=== PATIENT | male | born 1950 | race Caucasian/White ===

== ENCOUNTER 2018-01-27 15:17 | Observation (INO) ==
[2018-01-27] MEDS ORDERED: Isovue-370 500 ML INFUS..BTL IV ONE (15:32)
[2018-01-27] MEDS ORDERED: 0.9 % Sodium Chloride 1,000 ML IVC ONE (15:33)
--- NOTE | 2018-01-27 15:33 | Emergency Department Note ---
Disposition Clinical Impression: Atypical chest pain, Facial droop, Slurred speech, Hypertension Disposition: Admitted As Inpatient Condition: Fair Referrals: NONE,PCP [Non-Partnered Physician] - Time of Disposition: 19:26 General Adult HPI - General Stated complaint: chest pain Time Seen by Provider: 01/27/18 15:18 - Related Data Home Medications Medication Instructions Recorded Confirmed Aspirin [Lo-Dose Aspirin EC] 81 mg PO DAILY 07/29/17 08/03/17 Carvedilol [Coreg] 12.5 mg PO BID 07/29/17 08/03/17 Famotidine [Pepcid] 20 mg PO BID PRN 07/29/17 08/03/17 Gabapentin [Neurontin] 800 mg PO TID 07/29/17 08/03/17 Lisinopril [Zestril] 20 mg PO DAILY 07/29/17 08/03/17 Nitroglycerin [Nitrostat] 0.4 mg SL DAILY PRN 07/29/17 08/03/17 Acetaminophen [Extra Strength 1,000 mg PO DAILY PRN 08/03/17 08/03/17 Non-Aspirin] Amlodipine Besylate 10 mg PO DAILY 01/27/18 01/27/18 Allergies Allergy/AdvReac Type Severity Reaction Status Date / Time No Known Allergies Allergy Verified 01/27/18 17:04 Past Medical History - Past Medical History Medical history: Reports: non-contributory Psychiatric history: Reports: no psych history - Social History Smoking Status: Never smoker Smokeless Tobacco Status: No Alcohol use: Reports: none Drug use: Reports: none Course Vital Signs Temperature 97.6 F 01/27/18 15:22 Pulse Rate 61 01/27/18 15:22 Respiratory Rate 12 01/27/18 15:22 Blood Pressure 187/98 01/27/18 15:22 O2 Sat by Pulse Oximetry 99 01/27/18 15:22 Temperature 97.6 F 01/27/18 15:22 Pulse Rate 48 01/27/18 19:06 Respiratory Rate 12 01/27/18 19:06 Blood Pressure 160/80 01/27/18 19:06 O2 Sat by Pulse Oximetry 97 01/27/18 19:06 Oxygen Delivery Oxygen Delivery Room Air Medical Decision Making - Lab Data Result diagrams: 01/27/18 15:30 01/27/18 15:30 Lab Results 12/10/0701/27/18 01/27/18 Range/Units 15:30 15:30 15:30 WBC 6.0 (4.3-11.1) K/mcL RBC 4.56 (4.19-5.50) M/mcL Hgb 13.4 (12.9-16.9) g/dL Hct 40.6 (37.5-50.1) % MCV 89.0 (83.0-100.0) fL MCH 29.4 (28.0-33.3) pg MCHC 33.0 (31.6-35.5) g/dL RDW 12.9 (11.5-14.5) % Plt Count 156 (140-400) K/mcL MPV 10.9 (9.4-12.4) fL PT 11.8 (9.4-12.1) Seconds INR 1.0 APTT 37.9 H (26.0-36.0) Seconds Sodium 139 (136-145) mEq/L Potassium 3.8 (3.5-5.1) mEq/L Chloride 107 (98-107) mEq/L Carbon Dioxide 26 (23-29) mEq/L BUN 9 (8-23) mg/dL Creatinine 0.84 (0.70-1.30) mg/dL Est GFR ( Amer) > 60 (> 60) Est GFR (Non-Af Amer) > 60 (> 60) BUN/Creatinine Ratio 11 (6-26) Glucose 124 H (70-105) mg/dL Calculated Osmolality 288 (280-300) Calcium 9.1 (8.6-10.3) mg/dL Troponin I < 0.03 (< 0.04) ng/mL Attestation Statement - Attestation Attestation: I, Henry Curran DO, examined this patient [id number] and my medical decision-making was reviewed with Dr. Sammy Leigh, Resident Physician. I agree with the documented findings, disposition and treatment plan as described except to the extent set forth below. Please see my progress notes for details. 67-year-old male presents to the emergency room in the care of the family for evaluation of what they described as chest pain and difficulty with speech. According to the family the patient has had symptoms like this with his mental status over the last several years and they had a resent identical to this. He has never had chest pain with those symptoms. Patient described chest pain starting approximately one hour prior to coming in and the neurologic symptoms starting approximately one half hour prior to coming in. Denies any falls trauma or injury. He is complaining of a headache. Denies any nausea vomiting or diarrhea. No recent illnesses no fevers no chills. Denies any new medications. On presentation here the patient is alert and oriented. He has a visible right-sided facial droop with slurred speech. He is still describing chest pressure and pain. He does have a history of hypertension. His oropharynx is patent trachea is midline. He has no deviation of the tongue and soft palate. His lungs are clear his heart is regular. Abdomen is soft nontender nondistended with no guarding no rigidity no peritoneal symptoms. Stroke alert was called proximately 10 minutes after arrival here to the emergency room secondary to the slurred speech and facial asymmetry. Family says this has happened in the past and resolved on its own and he was diagnosed with a mini stroke. Concern is noted for some aspect of vascular ischemia causing the symptoms here today. Cardiac evaluation will be completed as well. Disposition to be determined. NIH stroke scale appears to be a 2 at this time for facial asymmetry and slurred speech. He does have subjective weakness in the right upper right lower extremity but no deviation against gravity. Patient is otherwise in no apparent distress at this point will have symptomatic control completed for the chest pain. Disposition to be determined that the patient will either require admission or transfer during this treatment course. See detailed documentation of the physical exam, medical intervention, medical decision-making and disposition in the resident physician's note. No critical care provider the patient's treatment course at this time. [address] Crowley reviewed the case by the stroke robot. The examination appears to be stable at this point. Patient has had poorly c ontrolled hypertension. Lengthy amount of time was spent bedside reviewing the neurologic symptoms. Is the patient and family are unable to confirm a definitive last known well. After reviewing the patient's chart at [facility] as well as the findings here today and multiple physical examinations at the bedside it determined that the patient is not a TPA candidate at this point. Recommendation for CT angiography of the head and neck were given. These tests were ordered on initial presentation. It they are negative the patient will be admitted to our facility for neurologic evaluation and cardiac treatment course. Patient is 100% chest pain-free at this point after 2 nitrogl ycerin. He was provided an aspirin. Patient does not have any acute signs of EKG change at this point. Troponin and labs are still pending. Disposition will be admission or transfer. Stroke alert was canceled at [address] angiography of the head and neck are unremarkable for vascularly significant stroke. Patient will be admitted at this time. The hospitalist Dr. Nuñez reviewed the case. No other concerns or issues noted at this time. Patient is chest pain-free. Patient is otherwise clinically stable. Will be admitted for continuation of care. NIH Stroke Scale - Facial Palsy Facial Palsy: Complete absence of movement in upper and lower face
[2018-01-27 15:39] LABS: Hematocrit 40.6 % (37.5-50.1); Hemoglobin 13.4 g/dL (12.9-16.9); Mean Corpuscular Hemoglobin 29.4 pg (28.0-33.3); Mean Platelet Volume 10.9 fL (9.4-12.4); Platelet Count 156 K/mcL (140-400); Red Blood Count 4.56 M/mcL (4.19-5.50); Red Cell Distribution Width 12.9 % (11.5-14.5)
[2018-01-27 15:46] LABS: Prothrombin Time 11.8 Seconds (9.4-12.1)
[2018-01-27] MEDS ORDERED: Nitroglycerin 25 MG/250 ML INFUS..BTL IVC ONE (15:47)
[2018-01-27 15:49] LABS: Activated Partial Thrombo Time 37.9 Seconds (26.0-36.0)
[2018-01-27] MEDS: Nitroglycerin 0.4 MG TAB.SUBL SL PRN ×2 (15:50→15:57)
--- NOTE | 2018-01-27 15:51 | Emergency Department Note ---
Disposition Clinical Impression: Atypical chest pain, Facial droop, Slurred speech Hypertension Qualifiers: Hypertension type: unspecified Qualified Code(s): I10 - Essential (primary) hypertension Disposition: Admitted As Inpatient Condition: Fair Time of Disposition: 20:36 Neuro HPI - General Stated Complaint: chest pain Time Seen by Provider: 01/27/18 15:18 Source: patient, family Limitations: no limitations Nursing Notes Reviewed: Yes Vital Signs Reviewed: Yes - History of Present Illness HPI Narrative: 67yo male presents from home for evaluation of chest pain. Chest pain onset one hour prior to arrival. Associate with dyspnea. Additionally, he has right- sided facial droop with slurring and slowness of speech onset 30 minutes prior to arrival. Family bedside no the patient is more confused than normal. Patient awoke this AM normal. At an unknown time, he had a severe headache which he has difficulty describing and has since abated. Now with CP and slurring of speech. He notes his BL LE are weak. Patient has a history of "spells," which family describes as passing out, eyes rolling up, huffing, unresponsive to voice. This has been ongoing for the past 3 years. Family notes he has previously been seen and the doctor could not fi gure out a cause; they are not sure when or by whom he was seen and evaluated. PMH: Hypertension. Medications: Antihypertensive, daily aspirin. No history of TIA, CVA, diabetes mellitus, [place], CKD. Habits: Does not drink alcohol, smoke tobacco, no illicit substances. ROS: Positive: As above Negative: Fever, chills, nausea, vomiting, nausea, vomiting, upper extremity heaviness or numbness or tingling, unusual back pain, changes in vision. - Related Data Home Medications: Home Medications Medication Instructions Recorded Confirmed Aspirin [Lo-Dose Aspirin EC] 81 mg PO DAILY 07/29/17 01/27/18 Carvedilol [Coreg] 12.5 mg PO BID 07/29/17 01/27/18 Famotidine [Pepcid] 20 mg PO BID PRN 07/29/17 01/27/18 Gabapentin [Neurontin] 800 mg PO QID 07/29/17 01/27/18 Lisinopril [Zestril] 20 mg PO DAILY 07/29/17 01/27/18 Nitroglycerin [Nitrostat] 0.4 mg SL DAILY PRN 07/29/17 01/27/18 Acetaminophen [Extra Strength 1,000 mg PO DAILY PRN 08/03/17 01/27/18 Non-Aspirin] Amlodipine Besylate 10 mg PO DAILY 01/27/18 01/27/18 Allergies/Adverse Reactions: Allergies Allergy/AdvReac Type Severity Reaction Status Date / Time No Known Allergies Allergy Verified 01/27/18 17:04 Past Medical History - Past Medical History Medical history: Reports: non-contributory Psychiatric history: Reports: no psych history - Social History Smoking Status: Never smoker Smokeless Tobacco Status: No Alcohol use: Reports: none Drug use: Reports: none Physical Exam Vital Signs Reviewed General: Patient is alert, oriented to self, date of , location, and in no acute distress. Head: atraumatic, normocephalic Eye: normal appearance, PERRL, EOMI, no scleral icterus, no conjunctival injection ENT: mucous membranes moist, normal external ear exam Neck: normal inspection, trachea midline, full ROM Chest: normal inspection, symmetric chest rise Respiratory: Poor respiratory effort. Bilateral breath sounds are clear without wheezing, crackles, or rhonchi. Cardiovascular: Regular rate and rhythm. No clicks, rubs, gallops, or murmors. Normal heart sounds. Abdomen: Bowel sounds present normoactive. Abdomen is soft, nondistended, and nontender. No guarding or rebound. No organomegaly noted. Musculoskeletal: Spontaneously moving all extremities. No limb drift in upper and lower extremities. Skin: warm, dry, intact. Neuro: Alert and oriented x4. Sensation light touch intact. Psych: Patient's affect is appropriate for situation. - General Limitations: no limitations General appearance: in no apparent distress, lethargic Course Course Narrative: Patient slurred speech could be chronic venous which is his baseline after these, "spells." Patient Strube face could also be from being edentulous as when he fully flexes his facial muscles, there is no facial droop. Patient and his at bedside are poor historians. [facility] neurologist, Dr. Laura Calzada, evaluated the patient via tele neuro. After exam, evaluation of HPI as well as patient's chart at [facility], it was deemed the patient is not a candidate for TPA.. Stroke alert canceled at 16:25. EKG dated 27 January 2018 at 15:23 interpreted as sinus rhythm with a rate of 61. QRS 92, QTC 449. Normal axis. Q waves present in precordial leads. Nonspecific ST-T changes. Compared to previous EKG dated 08/01/2017 showing no acute ischemic changes or comparison. Serum hematology is unremarkable. Serum chemistries unremarkable. Bedside glucose 124. CT head without contrast shows no acute intracranial abnormality. CTA head unremarkable. Allergy read. CTA neck that show some calcifications of the carotid artery however no focal internal carotid artery narrowing per radiology read. Vertebral arteries were unremarkable. Concern for multiple possible etiologies. Concern for patient chest pain given his obesity, hypertension. Also concern for his history of, "spells." Based on history provided by family, is unclear if they are epileptic versus other etiology. Discussed the above with the admitting hospitalist, Dr. Nuñez. Recommended both neurologic and cardiac workup. Head CT 01/27/18 15:28 IMPRESSION: No acute intracranial abnormality. Findings were discussed with Sammy Leigh at 3:48 pm on 01/27/2018. D/ / Ej Acuña MD / Ej Acuña MD Interpreting Provider: Ej Acuña MD Head CTA 01/27/18 15:32 IMPRESSION: Unremarkable CTA of the head. If clinical concern continues consider MRI D/ / Soren Pearson / Soren Pearson Interpreting Provider: Soren Pearson Neck CTA 01/27/18 15:32 IMPRESSION: Left greater than right carotid artery calcifications. There is no focal significant narrowing of the internal carotid arteries bilaterally. There is no focal significant narrowing of the vertebral arteries. D/ / Soren Pearson / Soren Pearson Interpreting Provider: Soren Pearson Vital Signs Temperature 97.6 F 01/27/18 15:22 Pulse Rate 61 01/27/18 15:22 Respiratory Rate 12 01/27/18 15:22 Blood Pressure 187/98 01/27/18 15:22 O2 Sat by Pulse Oximetry 99 01/27/18 15:22 Temperature 97.6 F 01/27/18 15:22 Pulse Rate 48 01/27/18 19:06 Respiratory Rate 12 01/27/18 19:06 Blood Pressure 160/80 01/27/18 19:06 O2 Sat by Pulse Oximetry 97 01/27/18 19:06 Oxygen Delivery Oxygen Delivery Room Air Neuro Symptoms/Deficit - Lab Data Result diagrams: 01/27/18 15:30 01/27/18 15:30 Lab Results 01/27/18 01/27/18 01/27/18 Range/Units 15:29 15:30 15:30 WBC 6.0 (4.3-11.1) K/mcL RBC 4.56 (4.19-5.50) M/mcL Hgb 13.4 (12.9-16.9) g/dL Hct 40.6 (37.5-50.1) % MCV 89.0 (83.0-100.0) fL MCH 29.4 (28.0-33.3) pg MCHC 33.0 (31.6-35.5) g/dL RDW 12.9 (11.5-14.5) % Plt Count 156 (140-400) K/mcL MPV 10.9 (9.4-12.4) fL PT 11.8 (9.4-12.1) Seconds INR 1.0 APTT 37.9 H (26.0-36.0) Seconds Sodium (136-145) mEq/L Potassium (3.5-5.1) mEq/L Chloride (98-107) mEq/L Carbon Dioxide (23-29) mEq/L BUN (8-23) mg/dL Creatinine (0.70-1.30) mg/dL Est GFR ( Amer) (> 60) Est GFR (Non-Af Amer) (> 60) BUN/Creatinine Ratio (6-26) Glucose (70-105) mg/dL POC Glucose 114 H (70-99) mg/dL Calculated Osmolality (280-300) Calcium (8.6-10.3) mg/dL Troponin I (< 0.04) ng/mL 01/27/18 Range/Units 15:30 WBC (4.3-11.1) K/mcL RBC (4.19-5.50) M/mcL Hgb (12.9-16.9) g/dL Hct (37.5-50.1) % MCV (83.0-100.0) fL MCH (28.0-33.3) pg MCHC (31.6-35.5) g/dL RDW (11.5-14.5) % Plt Count (140-400) K/mcL MPV (9.4-12.4) fL PT (9.4-12.1) Seconds INR APTT (26.0-36.0) Seconds Sodium 139 (136-145) mEq/L Potassium 3.8 (3.5-5.1) mEq/L Chloride 107 (98-107) mEq/L Carbon Dioxide 26 (23-29) mEq/L BUN 9 (8-23) mg/dL Creatinine 0.84 (0.70-1.30) mg/dL Est GFR ( Amer) > 60 (> 60) Est GFR (Non-Af Amer) > 60 (> 60) BUN/Creatinine Ratio 11 (6-26) Glucose 124 H (70-105) mg/dL POC Glucose (70-99) mg/dL Calculated Osmolality 288 (280-300) Calcium 9.1 (8.6-10.3) mg/dL Troponin I < 0.03 (< 0.04) ng/mL NIH Stroke Scale - Level of Consciousness LOC: Alert - LOC Questions LOC Questions: Answers both correctly - LOC Commands LOC Commands: Performs both correctly - Best Gaze Best Gaze: Normal - Visual Visual: No visual loss - Facial Palsy Facial Palsy: Minor asymmetry on smiling, flattened nasolabial fold - Motor Arms Motor Arm-Left: No drift for 10 seconds Motor Arm-Right: No drift for 10 seconds - Motor Legs Motor Leg-Left: No drift for 5 seconds Motor Leg-Right: No drift for 5 seconds - Limb Ataxia Limb Ataxia: Absent of affected limb too weak to perform exam - Sensory Sensory: Normal - Best Language Best Language: No aphasia - Dysarthria Dysarthria: Mild, slurs some words - Extinction and Inattention Extinction and Inattention: Normal - NIHSS Total Score NIHSS Total Score: 2 TPA Checklist - LKW: 3-4.5 hrs Add. Warnings/Precautions Patient/family understanding: The patient/family members have been counseled and understood the risk, benefit, and alternatives of treatment. Attestation Statement - Attestation Attestation: I, Henry Curran DO, examined this patient [id number] and my medical decision-making was reviewed with Dr. Sammy Leigh, Resident Physician. I agree with the documented findings, disposition and treatment plan as described except to the extent set forth below. Please see my progress notes for details.
[2018-01-27 15:57] LABS: BUN/Creatinine Ratio 11 (6-26); Blood Urea Nitrogen 9 mg/dL (8-23); Calcium 9.1 mg/dL (8.6-10.3); Carbon Dioxide 26 mEq/L (23-29); Chloride 107 mEq/L (98-107); Glucose 124 mg/dL (70-105); Osmolality,Calculated 288 (280-300); Potassium 3.8 mEq/L (3.5-5.1); Sodium 139 mEq/L (136-145); eGFR For Non-African Americans > 60 (> 60)
[2018-01-27 15:59] LABS: Troponin I < 0.03 ng/mL (< 0.04)
[2018-01-27] MEDS ORDERED: Aspirin 325 MG TABLET PO ONE (17:18)
[2018-01-27] MEDS ORDERED: amLODIPine 5 MG TABLET PO STA (17:52)
--- NOTE | 2018-01-27 20:00 | Internal Med History&Physical ---
<Emma Watson - Last Filed: 01/27/18 22:41> Date of Encounter: 01/27/18 Time of Encounter: 20:00 Internal Medicine - H&P: HPI Chief complaint: Chest Pain Admitted From: Home Plans for Post Hospital Care: Home History of present illness: Mr. Varner is a 67 year old male with past medical history significant for hypertension who presents to the ED with chest pain. Patient states that earlier this afternoon he began feeling generalized malaise, discomfort, lightheadedness/dizziness. He notes that he has had this feeling in the past, and usually when he sits down for a minute or two, the feeling usually passes. However, patient continued to feel unease, and shortly thereafter developed sudden onset headache, blurred vision, and then started feeling chest pain in the center of his chest. Chest pain was pressure-like, heavy sensation. Associated with dyspnea, fatigue, lower extremity weakness, posterior neck pain. Heaviness lasted for a few minutes and then turned to sharp pain in the center of his chest, and then to a dull achy sensation. At this point, patient denied fevers/chills, palpitations, nausea, vomiting, arm pain or neck pain, syncopal episode. Patient noted that he has had similar symptoms of chest pain, weakness in the past. Denies history of stroke, TIA, NV, or any other medical history, aside from hypertension. Stated that he had eaten this morning, and drank "m ultiple gatorades" and so was unlikely he was dehydrated or had low blood sugar. However, he suggested that he go to the ER for evaluation. On evaluation in the ED, patient's noted that speech was slurred from normal, and he was speaking slower than normal. She also noted right-sided facial droop, and mild confusion from baseline. Patient and family do not know when his last known well was. However, patient awoke this morning without any symptoms. At this point, patient's headache had resolved, but dull achy chest pain persisted. Stroke alert was called, and Dr. Calzada, neurologist from [facility] was consulted. Patient was evaluated via telemedicine, and it was deemed that patient was not a candidate for TPA. Stroke alert was canceled. In the ED, initial vitals were as follows: T = 97.6, HR = 61, RR = 12, BP = 187/98, O2 = 99% on room air CBC = within normal limits BNP = within normal limits Troponin = negative 1 EKG: Normal sinus rhythm, HR = 61, QRS = 92, QTC = 449, normal axis, normal intervals, no acute ST changes, largely unchanged from previous EKG CT head without contrast: No acute abnormality CTA head: Unremarkable CTA neck: Left greater than right carotid artery calcifications; no focal significant narrowing of the internal carotids bilaterally; no focal significant narrowing of vertebral arteries bilaterally Patient was given nitroglycerin 2 in the ED, after which chest pain resolved completely. Also given a dose of aspirin, amlodipine, carvedilol, normal saline. Upon visiting with patient, patient currently resting comfortably in bed in no acute distress. AAO 3. Notes chest pain has resolved, no longer feels dizzy/lightheaded, and does not feel lower extremity weakness. My exam, neuro exam was essentially normal with cranial nerves II through XII intact, and 5 out of 5 strength in upper and lower extremities bilaterally. No evidence of pronator drift, no cerebellar deficits. Heart and lungs were also normal. Plan to admit patient for further Cardiologic and neurologic workup. Past Med Surg Social Fam HX - Past Medical History Source: patient, old records reviewed Medical history: hypertension Psychiatric history: no psych history - Past Surgical History Additional surgical history: abcess on kidney drained - Social History Smoking Status: Never smoker Smokeless Tobacco Status: No Alcohol use: none Drug use: none - Family History Father History Unknown: Yes Adopted: No Age: 97 Family Member Ethnicity: Non- Living Status: Hx Family Cancer: Yes (Bone) Hx Family Neurologic Disorders: Yes (Alzheimers) Mother History Unknown: Yes Adopted: No Age: 67 Living Status: Hx Family Respiratory Disorders: Yes (Lung ca, ashtma) Internal Medicine - H&P: Meds Aspirin [Lo-Dose Aspirin EC] 81 mg PO DAILY 07/29/17 [History] Carvedilol [Coreg] 12.5 mg PO BID 07/29/17 [History] Famotidine [Pepcid] 20 mg PO BID PRN 07/29/17 [History] Gabapentin [Neurontin] 800 mg PO QID 07/29/17 [History] Lisinopril [Zestril] 20 mg PO DAILY 07/29/17 [History] Nitroglycerin [Nitrostat] 0.4 mg SL DAILY PRN 07/29/17 [History] Acetaminophen [Extra Strength Non-Aspirin] 1,000 mg PO DAILY PRN 08/03/17 [History] Amlodipine Besylate 10 mg PO DAILY 01/27/18 [History] Allergy/AdvReac Type Severity Reaction Status Date / Time No Known Allergies Allergy Verified 01/27/18 17:04 All Systems PM: A 10-system review of systems was performed and is negative for pertinent findings except as documented above in the HPI. - Constitutional Constitutional: malaise, no chills, no fatigue, no fever(s), no lethargy, no night sweats, no weakness - EENT Eyes: blurry vision, no change in vision Nose, mouth and throat: neck pain, no facial pain, no nasal congestion, no post- nasal drip, no sinus pain, no sinus pressure, no sore throat - Cardiovascular Cardiovascular ROS IM: lightheadedness, no chest pain, no dyspnea, no dyspnea on exertion, no edema, no irregular heart rhythm, no palpitations, no syncope - Respiratory Respiratory: no cough, no dyspnea, no dyspnea on exertion - Gastrointestinal Gastrointestinal: no abdominal pain, no constipation, no diarrhea, no hematemesis, no nausea, no vomiting - Genitourinary Genitourinary ROS male: urinary frequency, no dysuria - Musculoskeletal Musculoskeletal ROS IM: back pain, neck pain, no muscle weakness, no tingling - Integumentary Integumentary IM: no rash - Neurological Neurological ROS: abnormal speech, no confusion, no dizziness, no focal weakness, no headache(s), no numbness, no paresthesias, no tingling, no weakness - Constitutional Vitals: Temp Pulse Resp BP Pulse Ox 97.6 F 48 12 160/80 97 01/27/18 15:22 01/27/18 19:06 01/27/18 19:06 01/27/18 19:06 01/27/18 19:06 General appearance: Present: cooperative, A&O X 3, pleasant, no acute distress, answers questions appropriately Exam: GEN: AOx3; NAD; Resting comfortably in bed HEENT: Atraumatic, Normocephalic; EOMI; PERRLA; mucous membranes moist; no scleral icterus CARDIO: RRR, no murmurs, rubs, gallops RESP: CTAB, no wheezes, rales, rhonchi ABD: Soft, distended abdomen, non-tender, bowel sounds present; no rebound or guarding EXT: No lower extremity edema; non-tender to palpation NEURO: CN 2-12 grossly intact; 5/5 strength upper and lower extremities bilaterally; cerebellar function intact; no pronator drift; light touch sensation intact Internal Med - H&P Results - Labs CBC & Chem 7: 01/27/18 15:30 01/27/18 15:30 Labs: Short CBC 01/27/18 Range/Units 15:30 WBC 6.0 (4.3-11.1) K/mcL Hgb 13.4 (12.9-16.9) g/dL Hct 40.6 (37.5-50.1) % Plt Count 156 (140-400) K/mcL BMP 01/27/18 15:30 Sodium 139 Potassium 3.8 Chloride 107 Carbon Dioxide 26 BUN 9 Creatinine 0.84 Glucose 124 H Calcium 9.1 Cardiac Enzymes 01/27/18 Range/Units 15:30 Troponin I < 0.03 (< 0.04) ng/mL - EKG Data -: EKG Interpreted by Myself EKG shows normal: sinus rhythm, axis, intervals, QRS complexes, ST-T waves Rate: normal - EKG Data Prior EKG available for review: yes When compared to previous EKG: there is no significant change Interpretation IM: normal EKG - Impressions ITS Impressions Head CT 01/27/18 15:28 IMPRESSION: No acute intracranial abnormality. Findings were discussed with Sammy Leigh at 3:48 pm on 01/27/2018. D/ / Ej Acuña MD / Ej Acuña MD Interpreting Provider: Ej Acuña MD Head CTA 01/27/18 15:32 IMPRESSION: Unremarkable CTA of the head. If clinical concern continues consider MRI D/ / Soren Pearson / Soren Pearson Interpreting Provider: Soren Pearosn Neck CTA 01/27/18 15:32 IMPRESSION: Left greater than right carotid artery calcifications. There is no focal significant narrowing of the internal carotid arteries bilaterally. There is no focal significant narrowing of the vertebral arteries. D/ / Soren Pearson / Soren Pearson Interpreting Provider: Soren Pearson - Assessment and plan (1) Atypical chest pain Current Visit: Yes Status: Acute Assessment and plan: Mr. Varner is a 67 year old male with past medical history significant for hypertension who presents to the ED with chest pain. Notes heavy, pressure like sensation in the center of his chest; non-radiating; heavy feeling turned sharp and then dull, achy pain persisted Associated with sudden-onset headache, malaise, fatigue, lightheadedness/dizziness, blurry vision, dyspnea, posterior neck pain, lower extremity weakness b/l Denies fevers/chills, palpitations, bilateral arm pain, nausea, vomiting Pain resolved s/p 2 SL nitroglycerin in the ED; Also was given aspirin, amlodipine, carvedilol, NS in ED Initial ED Vitals: T = 97.6, HR = 61, RR = 12, BP = 187/98, O2 = 99% on room air CBC = within normal limits BNP = within normal limits Troponin = negative 2 EKG: Normal sinus rhythm, HR = 61, QRS = 92, QTC = 449, normal axis, normal intervals, no acute ST changes, largely unchanged from previous EKG Pharmacologic Stress Test (03/25/16): Impression: Pharmacologic stress ECG is negative for ischemia at level of heart rate achieved. Gated EF = 75%. Perfusion imaging was negative for ischemia or infarct. PLAN: Admit to further monitor on antisqueak filler vitals Trend troponins Cont aspirin; Hold HTN meds for now Monitor for further chest pain; Nitro PRN for chest pain Echo in the AM (2) Facial droop Current Visit: Yes Status: Acute Assessment and plan: On presentation to ED, pt's noted that pt had slurred speech, was talking more slowly than usual, and had right sided facial droop with mild confusion Associated with sudden onset headache prior to arrival, and chest pain Awoke this AM with no symptoms; unknown when last known well was Stroke Alert called - Dr. Calzada, [facility] neurology consulted - determined TPA not needed; stroke alert cancelled Initial Vitals: T = 97.6, HR = 61, RR = 12, BP = 187/98, O2 = 99% on room air Neurologic Workup: CT head without contrast: No acute abnormality CTA head: Unremarkable CTA neck: Left greater than right carotid artery calcifications; no focal significant narrowing of the internal carotids bilaterally; no focal significant narrowing of vertebral arteries bilaterally Currently resting comfortably - no acute distress; no focal neurologic deficits on exam; denies weakness, slurred speech at this time S/p Aspirin in the ED PLAN: Admit for further observation Monitor on telemetry; monitor vitals Neuro Checks q4h MRI Brain in the AM (3) Hypertension Current Visit: Yes Status: Acute Assessment and plan: BP = 187/98 on presentation S/p Aspirin, amlodipine, carvedilol in the ED PLAN: Hold HTN meds for now Qualifiers: Hypertension type: essential hypertension Qualified Code(s): I10 - Essential (primary) hypertension (4) DVT prophylaxis Current Visit: Yes Status: Acute Assessment and plan: Heparin SQ BID - Time Spent With Patient Total time spent is greater than 50% in coordination of care (as documented) at patient's floor/unit and/or counseling patient: less than 15 minutes <Kendirck Mistry - Last Filed: 01/28/18 01:51> Date of Encounter: 01/28/18 Time of Encounter: 00:10 - Constitutional Constitutional: no fatigue, no fever(s) - EENT Nose, mouth and throat: no nasal congestion, no sore throat - Cardiovascular Cardiovascular ROS IM: chest pain - Respiratory Respiratory: no cough, no chest congestion, no excessive phlegm production, no change in phlegm color - Gastrointestinal Gastrointestinal: no diarrhea, no vomiting - Genitourinary Genitourinary ROS male: no dysuria - Neurological Neurological ROS: no abnormal speech, no confusion, no dizziness, no focal weakness, no headache(s) - Psychiatric Psychiatric: no anxiety, no depression - Constitutional Vitals: Temp Pulse Resp BP Pulse Ox 97.7 F 57 18 117/65 94 01/28/18 00:31 01/28/18 00:31 01/28/18 00:31 01/28/18 00:31 01/28/18 00:31 General appearance: Present: A&O X 3, no acute distress - Head Head exam: Present: atraumatic, normal inspection - Eye Eye exam: Present: EOMI, PERRL. Absent: scleral icterus Pupils: Present: normal accommodation - ENT ENT exam: Present: mucous membranes dry, normal exam, normal oropharynx - Neck Neck exam general surgery: Present: full ROM, supple. Absent: tenderness, nuchal rigidity, thyromegaly - Respiratory Respiratory exam: Present: CTAB. Absent: chest wall tenderness, rales, rhonchi, wheezes - Cardiovascular Cardiovascular exam: Present: RRR, +S1, +S2. Absent: diastolic murmur, systolic murmur - GI/Abdominal GI/Abdominal exam: Present: normal bowel sounds, soft. Absent: hepatomegaly, mass, splenomegaly, tenderness - Extremities Exam Extremities exam: Present: joint swelling, warm, radial pulses palpable and symmetrical. Absent: calf tenderness, pedal edema, tenderness - Back Exam Back exam: Absent: CVA tenderness (L), CVA tenderness (R) - Neurological Exam Neurological exam: Present: alert, CN II-XII intact, oriented X3, no focal deficits. Absent: speech deficit Additional comments: I detect a minimal/equivocal facial droop -- not convinced at this time - Psychiatric Psychiatric exam: Present: normal affect, normal mood - Skin Skin exam: Present: dry, intact, warm Internal Med - H&P Results - Labs CBC & Chem 7: 01/27/18 15:30 01/27/18 15:30 Labs: Short CBC 01/27/18 Range/Units 15:30 WBC 6.0 (4.3-11.1) K/mcL Hgb 13.4 (12.9-16.9) g/dL Hct 40.6 (37.5-50.1) % Plt Count 156 (140-400) K/mcL BMP 01/27/18 15:30 Sodium 139 Potassium 3.8 Chloride 107 Carbon Dioxide 26 BUN 9 Creatinine 0.84 Glucose 124 H Calcium 9.1 Cardiac Enzymes 01/27/18 01/27/18 Range/Units 15:30 21:10 Troponin I < 0.03 < 0.03 (< 0.04) ng/mL - EKG Data -: EKG Interpreted by Myself - EKG Data EKG comments: 01/28/18 01:47 NSR, no acute ST-T changes - Impressions ITS Impressions Head CT 01/27/18 15:28 IMPRESSION: No acute intracranial abnormality. Findings were discussed with Sammy Burnett Leigh at 3:48 pm on 01/27/2018. D/ / Ej Acuña MD / Ej Acuña MD Interpreting Provider: Ej Acuña MD Head CTA 01/27/18 15:32 IMPRESSION: Unremarkable CTA of the head. If clinical concern continues consider MRI D/ / Soren Pearson / Soren Pearson Interpreting Provider: Soren Pearson Neck CTA 01/27/18 15:32 IMPRESSION: Left greater than right carotid artery calcifications. There is no focal significant narrowing of the internal carotid arteries bilaterally. There is no focal significant narrowing of the vertebral arteries. D/ / Soren Pearson / Soren Pearson Interpreting Provider: Soren Pearson - Time Spent With Patient Total time spent is greater than 50% in coordination of care (as documented) at patient's floor/unit and/or counseling patient: - Attending Attestation I discussed the patient [place], past medical history, review of systems, lab data, imaging data, and exam findings with Dr. Watson. I then saw and examined patient independently. Patient is sleeping but easily arousable. He is oriented 3. On my exam, he has no focal deficits and maybe a hint of a right- sided facial droop, but I am not convinced that he truly has a facial droop. Given his presenting symptoms and concerns, we will proceed with MRI of the brain and further workup. EKG and labs are unremarkable for cardiac issues. However, we will proceed with cardiac workup as well. At some point, he will need an ischemic cardiac workup, but I would defer until stroke workup is completed first. Other than my comments noted above and documented exam findings, I agree with Dr Yareli Watson's assessment and plan.
[2018-01-27] MEDS ORDERED: Naloxone 0.4 MG/ML INJ IVP PRN (20:36)
[2018-01-27] MEDS ORDERED: Famotidine 20 MG TABLET PO PRN (20:39)
[2018-01-27] MEDS: Gabapentin 400 MG CAPSULE PO SCH (21:41)
[2018-01-28 03:33] LABS: Basophils # 0.1 K/mcL (0.0-0.2); Basophils % 1.4 %; Eosinophils # 0.2 K/mcL (0.0-0.6); Eosinophils % 2.9 %; Hematocrit 38.6 % (37.5-50.1); Hemoglobin 12.7 g/dL (12.9-16.9); Immature Granulocytes % 0.4 % (0-4); Lymphocytes # 2.2 K/mcL (0.6-4.6); Lymphocytes % 39.6 %; Mean Corpuscular HGB Conc 32.9 g/dL (31.6-35.5); Mean Corpuscular Hemoglobin 29.3 pg (28.0-33.3); Mean Corpuscular Volume 89.1 fL (83.0-100.0); Mean Platelet Volume 11.1 fL (9.4-12.4); Monocytes # 0.4 K/mcL (0.0-1.3); Monocytes % 7.7 %; Neutrophils # 2.7 K/mcL (1.6-8.9); Platelet Count 142 K/mcL (140-400); Red Blood Count 4.33 M/mcL (4.19-5.50)
[2018-01-28 03:50] LABS: BUN/Creatinine Ratio 15 (6-26); Blood Urea Nitrogen 11 mg/dL (8-23); Calcium 8.9 mg/dL (8.6-10.3); Carbon Dioxide 25 mEq/L (23-29); Chloride 109 mEq/L (98-107); Cholesterol 149 mg/dL (< 200); Glucose 99 mg/dL (70-105); HDL Cholesterol 37 mg/dL (40-59); LDL Cholesterol,Calculated 80 mg/dL (0-99); Osmolality,Calculated 287 (280-300); Potassium 3.8 mEq/L (3.5-5.1); Sodium 139 mEq/L (136-145); Triglycerides 159 mg/dL (< 150); eGFR For Non-African Americans > 60 (> 60)
[2018-01-28] MEDS: *HR* Heparin 5,000 UNIT/ML VIAL SQ SCH ×2 (05:23→17:38)
[2018-01-28] MEDS: Gabapentin 400 MG CAPSULE PO SCH ×4 (08:45→21:32)
[2018-01-28] MEDS: Aspirin Enteric Coated 81 MG Tablet PO SCH (08:45)
[2018-01-28] MEDS ORDERED: Perflutren Lipid Microsphere 1.3 ML in 0.9 % Sodium Chloride 8.7 ML IVP ONE ×2 (09:23→09:45)
--- NOTE | 2018-01-28 09:48 | Internal Med Progress Note ---
Hospitalist Progress Note - Encounter Date of Encounter: 01/28/18 Time of Encounter: 09:46 - Subjective Interval History: Patient is a 67 years old male who has history of hypertension presenting emergency room for chest pain and the right facial drooping, slurry speech. Chest pain resolved in no recurrent chest pain overnight. 1. Chest pain, atypical, negative troponin 3, pending echocardiogram. Will do stress test at tomorrow 2. Right facial drooping and his source speech resolved. Likely TIA, pending MRI echocardiogram, check a TSH A1c - Exam Vitals: Temp Pulse Resp BP Pulse Ox 97.8 F 47 20 131/73 96 01/28/18 07:17 01/28/18 07:17 01/28/18 07:17 01/28/18 07:17 01/28/18 07:17 Exam: GEN: AOx3; NAD; Resting comfortably in bed HEENT: Atraumatic, Normocephalic; EOMI; PERRLA; mucous membranes moist; no scleral icterus CARDIO: RRR, no murmurs, rubs, gallops RESP: CTAB, no wheezes, rales, rhonchi ABD: Soft, distended abdomen, non-tender, bowel sounds present; no rebound or guarding EXT: No lower extremity edema; non-tender to palpation NEURO: CN 2-12 grossly intact; 5/5 strength upper and lower extremities bilaterally; cerebellar function intact; no pronator drift; light touch sensation intact DVT Prophylaxis: Heparin subcutaneous - Summary of Assessment and Plan Summary of Assessment and Plan: Mr. Varner is a 67 year old male with past medical history significant for hypertension who presents to the ED with chest pain. Chest pain was pressure- like, heavy sensation. Associated with dyspnea, fatigue, lower extremity weakness, posterior neck pain. Heaviness lasted for a few minutes and On evaluation in the ED, patient's noted that speech was slurred from normal, and he was speaking slower than normal. She also noted right-sided facial droop, and mild confusion from baseline. Patient was evaluated via telemedicine, and it was deemed that patient was not a candidate for TPA. Stroke alert was canceled. EKG: Normal sinus rhythm, HR = 61, QRS = 92, QTC = 449, normal axis, normal intervals, no acute ST changes, largely unchanged from previous EKG CT head without contrast: No acute abnormality CTA head: Unremarkable CTA neck: Left greater than right carotid artery calcifications; no focal significant narrowing of the internal carotids bilaterally; no focal significant narrowing of vertebral arteries bilaterally Patient was given nitroglycerin 2 in the ED, after which chest pain resolved completely. Also given a dose of aspirin, amlodipine, carvedilol, normal saline. Plan to admit patient for further Cardiologic and neurologic workup. (1) Atypical chest pain Current Visit: Yes Status: Acute EKG: Normal sinus rhythm, HR = 61, QRS = 92, QTC = 449, normal axis, normal intervals, no acute ST changes, largely unchanged from previous EKG he had 3 negative trop, chest pain resolved Cont aspirin, if MRI is negative for acute stroke , then will restart home BP meds pending TTE and stress test (2) Right Facial droop, and slurry speech, resolved, possible TIA, contineu ASA, pending MRI, TTE, check A1c, TSH, lipid panel, low HDL Current Visit: Yes Status: Acute Stroke Alert called - Dr. Calzada, [facility] neurology consulted - determined TPA not needed; stroke alert cancelled Initial Vitals: T = 97.6, HR = 61, RR = 12, BP = 187/98, O2 = 99% on room air Neurologic Workup: CT head without contrast: No acute abnormality CTA head: Unremarkable CTA neck: Left greater than right carotid artery calcifications; no focal significant narrowing of the internal carotids bilaterally; no focal significant narrowing of vertebral arteries bilaterall (3) Hypertension Current Visit: Yes Status: Acute Assessment and plan: S/p Aspirin, amlodipine, carvedilol in the ED restart HTN meds if MRI is negative for acute stroke Qualifiers: Hypertension type: essential hypertension Qualified Code(s): I10 - Essential (primary) hypertension (4) DVT prophylaxis Current Visit: Yes Status: Acute Assessment and plan: Heparin SQ BID Pending MRI and TTE, stress test. disposition, Home on 01/29 if all work up complete - Time Spent with Patient Total time spent is greater than 50% in coordination of care (as documented) at patient's floor/unit and/or counseling patient: 25 - 35 minutes Plan of Care Discussed with: patient Internal Medicine: Result - Labs CBC & Chem 7: 01/28/18 03:08 01/28/18 03:08 Labs: Short CBC 01/27/18 01/28/18 Range/Units 15:30 03:08 WBC 6.0 5.6 (4.3-11.1) K/mcL Hgb 13.4 12.7 L (12.9-16.9) g/dL Hct 40.6 38.6 (37.5-50.1) % Plt Count 156 142 (140-400) K/mcL Neutrophils # 2.7 (1.6-8.9) K/mcL BMP 01/27/18 01/28/18 15:30 03:08 Sodium 139 139 Potassium 3.8 3.8 Chloride 107 109 H Carbon Dioxide 26 25 BUN 9 11 Creatinine 0.84 0.72 Glucose 124 H 99 Calcium 9.1 8.9 Cardiac Enzymes 01/27/18 01/27/18 01/28/18 Range/Units 15:30 21:10 03:08 Troponin I < 0.03 < 0.03 < 0.03 (< 0.04) ng/mL - ABG Interpretation ABG results: PT/INR, D-dimer PT 11.8 Seconds (9.4-12.1) 01/27/18 15:30 - Impressions Impressions Head CT 01/27/18 15:28 IMPRESSION: No acute intracranial abnormality. Findings were discussed with Sammy Leigh at 3:48 pm on 01/27/2018. D/ / Ej Acuña MD / Ej Acuña MD Interpreting Provider: Ej Acuña MD Head CTA 01/27/18 15:32 IMPRESSION: Unremarkable CTA of the head. If clinical concern continues consider MRI D/ / Soren Pearson / Soren Pearson Interpreting Provider: Soren Pearson Neck CTA 01/27/18 15:32 IMPRESSION: Left greater than right carotid artery calcifications. There is no focal significant narrowing of the internal carotid arteries bilaterally. There is no focal significant narrowing of the vertebral arteries. D/ / Soren Pearson / Soren Pearson Interpreting Provider: Soren Pearson Consult Discharge Plan - Plan
[2018-01-29 03:19] LABS: Thyroid Stimulating Hormone 1.746 mcIU/mL (0.340-5.600)
[2018-01-29 03:43] LABS: Estimated Average Glucose 134 mg/dl; Hemoglobin A1C 6.3 %
[2018-01-29] MEDS: *HR* Heparin 5,000 UNIT/ML VIAL SQ SCH ×2 (05:26→17:33)
[2018-01-29] MEDS ORDERED: Regadenoson 0.4 MG/5 ML SYRINGE IVP ONE (05:42)
--- NOTE | 2018-01-29 08:11 | Neurology - Consult Note ---
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 Family were unable to confirm a definitive last known well. CT brain revealed acute intracranial abnormality. [facility] teleneurology determined that the patient was not a TPA candidate. CT angiography of the head and neck revealed no significant focal narrowing of the internal carotid or vertebral arteries bilaterally. Echo revealed LVEF 60% with no significant valvular dysfunction. MRI brain pending Continue aspirin. Lipid panel reviewed. Agree with starting statin therapy. No residual deficits on exam. Patient has intermittent difficulty pronouncing words, which is chronic. PT/OT/ ST consulted. Recommend outpatient work up for intermittent "absence seizure-like episodes". (2) Hypertensive emergency Current Visit: No Status: Resolved Patient with history of poorly controlled HTN due to medication non-compliance presented with blood pressure between 187/98 to 201/77 on day of admission and findings concerning for TIA and AMS. Home blood pressure meds were held to allow for permissive hypertension. Blood pressure within normal limits now. May resume home antihypertensive therapy. History of Present Illness Chief complaint: Chest pain HPI: Mr. 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 Family were unable to confirm a definitive last known well but reports patient has chronic difficulty with slurred speech. Family reported this has happened in the past and resolved on its own when he was previously diagnosed with a TIA. He denied recent illnesses, fevers, chills, recent falls, trauma or injury. In the ED, CT brain revealed acute intracranial abnormality. [facility] teleneurology determined that the patient was not a TPA candidate. CT angiography of the head and neck revealed no significant focal narrowing of the internal carotid or vertebral arteries bilaterally. Echo revealed LVEF 60% with no significant valvular dysfunction. Neurology was consulted for further recommendations. Past Med Surg Social Fam HX - Past Medical History Medical history: hypertension Psychiatric history: no psych history - Past Surgical History Additional surgical history: abcess on kidney drained - Social History Smoking Status: Never smoker Smokeless Tobacco Status: No Alcohol use: none Drug use: none - Family History Father History Unknown: Yes Adopted: No Age: 97 Family Member Ethnicity: Non- Living Status: Hx Family Cancer: Yes (Bone) Hx Family Neurologic Disorders: Yes (Alzheimers) Mother History Unknown: Yes Adopted: No Age: 67 Living Status: Hx Family Respiratory Disorders: Yes (Lung ca, ashtma) Medications and Allergies Aspirin [Lo-Dose Aspirin EC] 81 mg PO DAILY 07/29/17 [History] Carvedilol [Coreg] 12.5 mg PO BID 07/29/17 [History] Famotidine [Pepcid] 20 mg PO BID PRN 07/29/17 [History] Gabapentin [Neurontin] 800 mg PO QID 07/29/17 [History] Lisinopril [Zestril] 20 mg PO DAILY 07/29/17 [History] Nitroglycerin [Nitrostat] 0.4 mg SL DAILY PRN 07/29/17 [History] Acetaminophen [Extra Strength Non-Aspirin] 1,000 mg PO DAILY PRN 08/03/17 [History] Amlodipine Besylate 10 mg PO DAILY 01/27/18 [History] Allergy/AdvReac Type Severity Reaction Status Date / Time No Known Allergies Allergy Verified 01/27/18 17:04 All Systems: The remainder of the systems were reviewed and are negative - Constitutional Constitutional ROS IM: weakness, no chills, no fever(s) - Nose, Mouth, Throat Nose, mouth and throat: dizziness, dysphagia, headache(s), no neck pain - Cardiovascular Cardiovascular ROS IM: chest pain, lightheadedness - Respiratory Respiratory IM: no cough, no dyspnea - Gastrointestinal Gastrointestinal: nausea, vomiting, no abdominal pain - Genitourinary Genitourinary ROS: no urinary frequency, no urinary urgency - Musculoskeletal Musculoskeletal ROS IM: numbness (chronic peripheral neuropathy), no muscle weakness, no neck pain - Integumentary Integumentary IM: no new lesions, no rash - Neurological Neurological ROS: abnormal gait, dizziness, frequent falls, numbness (chronic peripheral neuropathy), no sensory deficit - Psychiatric Psychiatric general PM: no anxiety, no depression Physical Examination - Vital Signs Vital Signs: Initial Vital Signs Temp Pulse Resp BP Pulse Ox 97.6 F 61 12 187/98 99 01/27/18 15:22 01/27/18 15:22 01/27/18 15:22 01/27/18 15:22 01/27/18 15:22 - Constitutional General appearance: comfortable - Neurologic Sensorimotor examination: intact Detailed motor examination: grossly full strength in all extremities, full st rength in all major muscle groups Motor examination - right side: 4/5: chemist biological (chronic carpal tunnel syndrome), 5/5: deltoids, biceps, triceps, wrist flexion, wrist extension, hip flexors, tibialis Anterior, quadriceps, toe extension (EHL), plantarflexion Motor examination - left side: 4/5: chemist biological (chronic carpal tunnel syndrome), 5/5: deltoids, biceps, triceps, wrist flexion, wrist extension, hip flexors, quadriceps, tibialis Anterior, toe extension (EHL), plantarflexion Detailed sensory examination: intact, light touch Reflex and gait examination: normal gait Reflexes: Biceps: 2+, Triceps: 2+, Brachioradialis: 2+, Patella: 2+, Achilles: 2+ Mental Status Examination: awake, alert, oriented to person, oriented to place, oriented to time, follows commands appropriately, answers questions appropriately, no agnosia, no aphasia, no aproxia, expressive aphasia (intermittent difficultly pronouncing words) Cranial nerve examination: PERRL, EOMI, visual diaz intact, sensory to face intact, no facial asymmetry is present, hearing is intact symmetrically, flexes SCM and trapezius muscles symmetrically with full power, tongue protrudes midline, no atrophy or facial fasiculations present Cerebellar examination: no dysmetria, performs finger to nose and heel to fraser symmetrically without ataxia, no gait ataxia, no truncal ataxia, no difficulty with rapid alternating movements Results - Laboratory Findings CBC and BMP: 01/28/18 03:08 01/28/18 03:08 Abnormal lab findings: Abnormal lab results Hgb 12.7 g/dL (12.9-16.9) L 01/28/18 03:08 APTT 37.9 Seconds (26.0-36.0) H 01/27/18 15:30 Chloride 109 mEq/L (98-107) H 01/28/18 03:08 POC Glucose 119 mg/dL (70-99) H 01/28/18 15:55 Hemoglobin A1c 6.3 % (-5.6) H 01/28/18 03:08 Triglycerides 159 mg/dL (< 150) H 01/28/18 03:08 VLDL Cholesterol, Calc 32 mg/dL (< 31) H 01/28/18 03:08 HDL Cholesterol 37 mg/dL (40-59) L 01/28/18 03:08 - Diagnostic Findings Additional findings: ITS Impressions Head CT 01/27/18 15:28 IMPRESSION: No acute intracranial abnormality. Findings were discussed with Sammy Leigh at 3:48 pm on 01/27/2018. D/ / Ej Acuña MD / Ej Acuña MD Interpreting Provider: Ej Acuña MD Head CTA 01/27/18 15:32 IMPRESSION: Unremarkable CTA of the head. If clinical concern continues consider MRI D/ / Soren Pearson / Soren Pearson Interpreting Provider: Soren Pearson Neck CTA 01/27/18 15:32 IMPRESSION: Left greater than right carotid artery calcifications. There is no focal significant narrowing of the internal carotid arteries bilaterally. There is no focal significant narrowing of the vertebral arteries. D/ / Soren Pearson / Soren Pearson Interpreting Provider: Soren Pearson Echocardiogram 01/28/18 22:39 Impressions: LVEF 60%. Normal LV chamber size, wall thickness and function. Mild left ventricular diastolic dysfunction. Normal right ventricular structure and function. No evidence of pulmonary hypertension. No significant valvular dysfunction. Left Ventricular Wall Motion: Rest Echo Findings All wall segments showed normal motion. Findings: Study Quality * Technically adequate exam. ECG Findings * Normal sinus rhythm. Left Ventricle * LVEF 60%. * Normal LV chamber size, wall thickness and function. * Mild left ventricular diastolic dysfunction. Right Ventricle * Normal right ventricular structure and function. Left Atrium * Mildly dilated left atrium. Right Atrium * Normal right atrial size. Aortic Valve * Aortic valve not well visualized. * No aortic regurgitation. * No aortic stenosis. Mitral Valve * Normal mitral valve structure and function. * No mitral regurgitation. * No mitral stenosis. Tricuspid Valve * Normal tricuspid valve structure and function. * Trace tricuspid regurgitation. * No evidence of pulmonary hypertension. Pulmonic Valve * Pulmonic valve not well visualized. Aorta * Normally sized aortic root. Pericardium * The pericardium appears normal. IVC * Normal IVC dimensions and inspiratory collapse. Pulmonary Artery * Normal visualized portions of the main pulmonary artery. Consult Discharge Plan - Plan Referrals: NONE,PCP [Primary Care Provider] - <Noé العلي - Last Filed: 01/29/18 17:45> Date of Encounter: 01/29/18 Time of Encounter: 17:36 Assessment and Plan (1) TIA (transient ischemic attack) Current Visit: Yes Status: Resolved As above. I believe that the differential here certainly could include TIA as he does have poorly controlled hypertension he has had previous TIAs and medical compliance is an issue. His workup thus far has been negative however MRI scan of the brain is pending. He also has a strange and episodes of confusion sometimes associated with headache. I would like to rule out the possibility of seizures. Although I would not expect headache to herald a seizure. He denies any history of migraine headaches. He does not particularly complain of photophobia or phonophobia associated with the headaches. But the episodes of headache can last several hours. It seems as though the episodes of confusion are transient. We will obtain an EEG, MRI scan of the brain at this time is pending. May consider empiric antiepileptic therapy as these episodes of transient confusion seemed to be occurring on a daily basis according to his . Increase ASA to 325mg. Agree with statin therapy. History of Present Illness HPI: The chart was reviewed, the patient was seen and examined along with the resident. I agree with his assessment as stated above. Patient's was present and also informs us that he has frequent periodic episodes of confusion. Based on her description there is possible that they may be partial seizures. According to both he and his he is back to his normal baseline. He has had CTA of the head and neck both of which were unrevealing. Echocardiogram was unrevealing as well. He takes aspirin at home 81 mg daily however there is a question regarding compliance. Upon admission with blood pressure was elevated at 201/77, and he was also reported to have had TIA-like symptoms including including slurred speech and right facial droop and paresthesias. All Systems: The remainder of the systems were reviewed and are negative Review of Systems: The balance of the systems review is negative. Physical Examination - Vital Signs Vital Signs: Initial Vital Signs Temp Pulse Resp BP Pulse Ox 97.6 F 61 12 187/98 99 01/27/18 15:22 01/27/18 15:22 01/27/18 15:22 01/27/18 15:22 01/27/18 15:22 - Neurologic Mental Status Examination: Mental status finds the patient is awake and alert he does know his name he knows he is in [facility], he knows that the month is January he knows [place] is the next holiday. However he does however seem to have some difficulty with central processing suggesting perhaps underlying dementia. He follows commands that difficulty. However he is not able to provide a specific detailed history which I did not get until his came. Results - Laboratory Findings CBC and BMP: 01/28/18 03:08 01/28/18 03:08 Abnormal lab findings: Abnormal lab results Hgb 12.7 g/dL (12.9-16.9) L 01/28/18 03:08 APTT 37.9 Seconds (26.0-36.0) H 01/27/18 15:30 Chloride 109 mEq/L (98-107) H 01/28/18 03:08 POC Glucose 119 mg/dL (70-99) H 01/28/18 15:55 Hemoglobin A1c 6.3 % (-5.6) H 01/28/18 03:08 Triglycerides 159 mg/dL (< 150) H 01/28/18 03:08 VLDL Cholesterol, Calc 32 mg/dL (< 31) H 01/28/18 03:08 HDL Cholesterol 37 mg/dL (40-59) L 01/28/18 03:08
[2018-01-29] MEDS: amLODIPine 5 MG TABLET PO SCH (09:33)
[2018-01-29] MEDS: Gabapentin 400 MG CAPSULE PO SCH ×4 (09:33→20:27)
[2018-01-29] MEDS: Aspirin Enteric Coated 81 MG Tablet PO SCH (09:33)
[2018-01-29] MEDS: Lisinopril 20 MG TABLET PO SCH (09:34)
--- NOTE | 2018-01-29 10:21 | Internal Med Progress Note ---
Hospitalist Progress Note - Encounter Date of Encounter: 01/29/18 Time of Encounter: 10:00 - Subjective Interval History: patient was seen and examined at bedside, has no complaints, tolerated po diet however NPO now denies fever, chills, palpitations, shortness of breath, nausea, vomiting, diarrhea, leg swelling, calf tenderness, heat or cold intolerance, LOC, syncope, headache, vision changes, loss of function in her extremities, PND or orthopnea. - Exam Vitals: Temp Pulse Resp BP Pulse Ox 98.0 F 45 18 139/83 93 01/29/18 07:13 01/29/18 07:13 01/29/18 07:13 01/29/18 07:13 01/29/18 09:40 Exam: GEN: AOx3; NAD; Resting comfortably in bed HEENT: Atraumatic, Normocephalic; EOMI; PERRLA; mucous membranes moist; no scleral icterus CARDIO: RRR, no murmurs, rubs, gallops RESP: CTAB, no wheezes, rales, rhonchi ABD: Soft, distended abdomen, non-tender, bowel sounds present; no rebound or guarding EXT: No lower extremity edema; non-tender to palpation NEURO: CN 2-12 grossly intact; 5/5 strength upper and lower extremities bilater ally; cerebellar function intact; no pronator drift; light touch sensation intact - Assessment and Plan (1) TIA (transient ischemic attack) Current Visit: Yes Status: Acute Assessment and Plan: right sided facial droop, slurred speech resolved CT head without contrast: No acute abnormality CTA head: Unremarkable CTA neck: Left greater than right carotid artery calcifications; no focal sig nificant narrowing of the internal carotids bilaterally; no focal significant narrowing of vertebral arteries bilaterall A1c6.3, TSH 1.7 Lipid panel noted started on statins Continue aspirin MRI - pending Neurology consulted will follow recommendations PT/OT TTE: Impressions: LVEF 60%. Normal LV chamber size, wall thickness and function. Mild left ventricular diastolic dysfunction. Normal right ventricular structure and function. No evidence of pulmonary hypertension. No significant valvular dysfunction. (2) Atypical chest pain Current Visit: Yes Status: Acute Assessment and Plan: Troponins negative 3, chest pain currently resolved As per documentation EKG: Normal sinus rhythm, HR = 61, QRS = 92, QTC = 449, normal axis, normal intervals, no acute ST changes, largely unchanged from previous EKG Echocardiogram LVEF 60%., Normal LV chamber size, wall thickness and function., Mild left ventricular diastolic dysfunction. For stress test 01/29- will follow results will consider cardiology pending above results continue ASA, statin, ACEI, and BB NTG PRN for chest pain (3) Hypertension Current Visit: Yes Status: Acute Assessment and Plan: on amlodipine, ACEI and BB- will titrate to control BP. (4) DVT prophylaxis Current Visit: Yes Status: Acute - Time Spent with Patient Total time spent is greater than 50% in coordination of care (as documented) at patient's floor/unit and/or counseling patient: Internal Medicine: Result - Labs CBC & Chem 7: 01/28/18 03:08 01/28/18 03:08 Labs: BMP 01/28/18 03:08 Sodium 139 Potassium 3.8 Chloride 109 H Carbon Dioxide 25 BUN 11 Creatinine 0.72 Glucose 99 Calcium 8.9 - ABG Interpretation ABG results: PT/INR, D-dimer PT 11.8 Seconds (9.4-12.1) 01/27/18 15:30 - Impressions Impressions Echocardiogram 01/28/18 22:39 Impressions: LVEF 60%. Normal LV chamber size, wall thickness and function. Mild left ventricular diastolic dysfunction. Normal right ventricular structure and function. No evidence of pulmonary hypertension. No significant valvular dysfunction. Left Ventricular Wall Motion: Rest Echo Findings All wall segments showed normal motion. Findings: Study Quality * Technically adequate exam. ECG Findings * Normal sinus rhythm. Left Ventricle * LVEF 60%. * Normal LV chamber size, wall thickness and function. * Mild left ventricular diastolic dysfunction. Right Ventricle * Normal right ventricular structure and function. Left Atrium * Mildly dilated left atrium. Right Atrium * Normal right atrial size. Aortic Valve * Aortic valve not well visualized. * No aortic regurgitation. * No aortic stenosis. Mitral Valve * Normal mitral valve structure and function. * No mitral regurgitation. * No mitral stenosis. Tricuspid Valve * Normal tricuspid valve structure and function. * Trace tricuspid regurgitation. * No evidence of pulmonary hypertension. Pulmonic Valve * Pulmonic valve not well visualized. Aorta * Normally sized aortic root. Pericardium * The pericardium appears normal. IVC * Normal IVC dimensions and inspiratory collapse. Pulmonary Artery * Normal visualized portions of the main pulmonary artery. Consult Discharge Plan - Plan Referrals: NONE,PCP [Primary Care Provider] - (3) Hypertension Qualifiers: Hypertension type: essential hypertension Qualified Code(s): I10 - Essential (primary) hypertension
[2018-01-30] MEDS ORDERED: 0.9 % Sodium Chloride 500 ML IVC ONE (01:12)
[2018-01-30] MEDS: *HR* Heparin 5,000 UNIT/ML VIAL SQ SCH ×2 (06:27→17:20)
--- NOTE | 2018-01-30 06:42 | Neurology Progress Note ---
Addendum entered and electronically signed by Noé العلي DO 01/30/18 16:14: The EEG was normal. Therefore suspect patient's symptoms are likely secondary to TIA associated with medical noncompliance. I will reevaluate at your request. Addendum entered and electronically signed by Jarad Schmidt DO 01/30/18 10:36: This addendum serves as my signature to this progress note. Original Note: <Jarad Schmidt - Last Filed: 01/30/18 06:40> Date of Encounter: 01/30/18 Time of Encounter: 06:40 Assessment and Plan (1) TIA (transient ischemic attack) Current Visit: Yes Status: Resolved Patient with poorly controlled HTN, previous TIA, and transient confusion who presented with headache, right sided facial droop, and slurred speech. Family were unable to confirm a definitive last known well. CT brain revealed acute intracranial abnormality. [facility] teleneurology determined that the patient was not a TPA candidate. CT angiography of the head and neck revealed no significant focal narrowing of the internal carotid or vertebral arteries bilaterally. Echo revealed LVEF 60% with no significant valvular dysfunction. MRI brain revealed no intracranial abnormality with mild chronic microangiopathic ischemic changes of the cerebral white matter. Increased Aspirin dose to 325 mg daily. Lipid panel reviewed. Agree with starting statin therapy. No residual deficits on exam. Patient has intermittent difficulty pronouncing words, which is chronic. PT/OT/ ST consulted. (2) Confusion Current Visit: Yes Status: Chronic Patient with headaches and transient episodes of confusion sometimes lasting for several hours. No photophobia, phonophobia, or history of migraine headaches. EEG pending to rule out seizure activity. Continue Tylenol as needed. May consider empiric antiepileptic therapy as these episodes of transient confusion seemed to be occurring on a daily basis according to his . (3) Hypertension Current Visit: Yes Status: Chronic Patient with history of poorly controlled HTN due to medication non-compliance presented with blood pressure between 187/98 to 201/77 on day of admission and findings concerning for TIA and confusion. Home blood pressure meds were previously held to allow for permissive hypertension. Blood pressure within normal limits now. May resume home antihypertensive thera py. Qualifiers: Hypertension type: essential hypertension Qualified Code(s): I10 - Essential (primary) hypertension (4) Atypical chest pain Current Visit: Yes Status: Acute Management per primary team. Subjective Principal diagnosis: Chest pain Interval history: Patient seen and examined resting comfortably in bed. MRI revealed no intracranial abnormality with mild chronic microangiopathic ischemic changes of the cerebral white matter. EEG is pending to rule out seizure activity. Objective - Constitutional Vitals: Temp Pulse Resp BP Pulse Ox 97.8 F 53 18 110/62 95 01/30/18 04:31 01/30/18 04:31 01/30/18 04:31 01/30/18 03:00 01/30/18 04:31 General appearance: Present: cooperative, A&O X 3, no acute distress, answers questions appropriately - Head Head exam: Present: atraumatic, normocephalic - Eye Eye exam: Present: PERRL, conjuntiva pink, sclera anicteric Pupils: Present: PERRL - Extremities Exam Extremities exam: Present: warm, radial pulses palpable and symmetrical. 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), 5/5: deltoids, biceps, triceps, wrist flexion, wrist extension, hip flexors, quadriceps, tibialis Anterior, toe extension (EHL), plantarflexion Sensation intact: Present: intact, light touch Reflex and gait examination: normal gait Mental Status Examination: Present: awake, alert, oriented to person, oriented to place, oriented to time, follows commands appropriately, answers questions appropriately, no agnosia, no aphasia, no aproxia, expressive aphasia (intermittent difficultly pronouncing words) Cranial nerve examination: Present: PERRL, EOMI, visual diaz intact, sensory to face intact, no facial asymmetry is present, hearing is intact symmetrically, flexes SCM and trapezius muscles symmetrically with full power, tongue protrudes midline, no atrophy or facial fasiculations present Cerebellar examination: Present: no dysmetria, performs finger to nose and heel to fraser symmetrically without ataxia, no gait ataxia, no truncal ataxia, no difficulty with rapid alternating movements Results - Laboratory Findings CBC and BMP: 01/28/18 03:08 01/28/18 03:08 Abnormal lab findings: Abnormal lab results Hgb 12.7 g/dL (12.9-16.9) L 01/28/18 03:08 APTT 37.9 Seconds (26.0-36.0) H 01/27/18 15:30 Chloride 109 mEq/L (98-107) H 01/28/18 03:08 POC Glucose 150 mg/dL (70-99) H 01/29/18 19:32 Hemoglobin A1c 6.3 % (-5.6) H 01/28/18 03:08 Triglycerides 159 mg/dL (< 150) H 01/28/18 03:08 VLDL Cholesterol, Calc 32 mg/dL (< 31) H 01/28/18 03:08 HDL Cholesterol 37 mg/dL (40-59) L 01/28/18 03:08 - Diagnostic Findings Additional findings: ITS Impressions Head CT 01/27/18 15:28 IMPRESSION: No acute intracranial abnormality. Findings were discussed with Sammy Leigh at 3:48 pm on 01/27/2018. D/ / Ej Acuña MD / Ej Acuña MD Interpreting Provider: Ej Acuña MD Head CTA 01/27/18 15:32 IMPRESSION: Unremarkable CTA of the head. If clinical concern continues consider MRI D/ / Soren Pearson / Soren Pearson Interpreting Provider: Soren Pearson Neck CTA 01/27/18 15:32 IMPRESSION: Left greater than right carotid artery calcifications. There is no focal significant narrowing of the internal carotid arteries bilaterally. There is no focal significant narrowing of the vertebral arteries. D/ / Soren Pearson / Soren Pearson Interpreting Provider: Soren Pearson Echocardiogram 01/28/18 22:39 Impressions: LVEF 60%. Normal LV chamber size, wall thickness and function. Mild left ventricular diastolic dysfunction. Normal right ventricular structure and function. No evidence of pulmonary hypertension. No significant valvular dysfunction. Left Ventricular Wall Motion: Rest Echo Findings All wall segments showed normal motion. Findings: Study Quality * Technically adequate exam. ECG Findings * Normal sinus rhythm. Left Ventricle * LVEF 60%. * Normal LV chamber size, wall thickness and function. * Mild left ventricular diastolic dysfunction. Right Ventricle * Normal right ventricular structure and function. Left Atrium * Mildly dilated left atrium. Right Atrium * Normal right atrial size. Aortic Valve * Aortic valve not well visualized. * No aortic regurgitation. * No aortic stenosis. Mitral Valve * Normal mitral valve structure and function. * No mitral regurgitation. * No mitral stenosis. Tricuspid Valve * Normal tricuspid valve structure and function. * Trace tricuspid regurgitation. * No evidence of pulmonary hypertension. Pulmonic Valve * Pulmonic valve not well visualized. Aorta * Normally sized aortic root. Pericardium * The pericardium appears normal. IVC * Normal IVC dimensions and inspiratory collapse. Pulmonary Artery * Normal visualized portions of the main pulmonary artery. Brain MRI 01/29/18 22:37 IMPRESSION: No acute intracranial abnormality. Mild chronic microangiopathic ischemic changes of cerebral white matter. D/ / Smith Lin / Smith Lin Interpreting Provider: Smith Lin Consult Discharge Plan - Plan Referrals: NONE,PCP [Primary Care Provider] - <Noé العلي - Last Filed: 01/30/18 07:43> Date of Encounter: 01/30/18 Time of Encounter: 07:36 Assessment and Plan (1) TIA (transient ischemic attack) Current Visit: Yes Status: Resolved I agree with the neurology resident's assessment as stated above. I will obtain an EEG to rule out the possibility of seizure. Otherwise I agree with TIA management as stated above. Subjective Interval history: As above. Chart was reviewed, the issue was seen and examined independently. He had an uneventful night. I did review the MRI personally and reveals no evidence of acute infarct, does however reveal chronic ischemic deep white matter and basal ganglia hyperintensities. I will order the EEG for today. The meantime we will maintain the aspirin 325 mg daily and recommend adding statin therapy. 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
[2018-01-30] MEDS: Lisinopril 20 MG TABLET PO SCH (08:42)
[2018-01-30] MEDS: Aspirin Enteric Coated 325 MG Tablet PO SCH (08:42)
[2018-01-30] MEDS: Gabapentin 400 MG CAPSULE PO SCH ×4 (08:42→22:10)
[2018-01-30] MEDS: amLODIPine 5 MG TABLET PO SCH (08:42)
--- NOTE | 2018-01-30 12:28 | Internal Med Progress Note ---
Hospitalist Progress Note - Encounter Date of Encounter: 01/30/18 Time of Encounter: 09:00 - Subjective Interval History: patient was seen and examined at bedside, has no complaints, tolerated po diet no overnight events. - Exam Vitals: Temp Pulse Resp BP Pulse Ox 97.8 F 48 15 122/71 94 01/30/18 06:48 01/30/18 06:48 01/30/18 06:48 01/30/18 06:48 01/30/18 06:48 Exam: GEN: AOx3; NAD; Resting comfortably in bed HEENT: Atraumatic, Normocephalic; EOMI; PERRLA; mucous membranes moist; no scleral icterus CARDIO: RRR, no murmurs, rubs, gallops RESP: CTAB, no wheezes, rales, rhonchi ABD: Soft, distended abdomen, non-tender, bowel sounds present; no rebound or guarding EXT: No lower extremity edema; non-tender to palpation NEURO: CN 2-12 grossly intact; 5/5 strength upper and lower extremities bilaterally; cerebellar function intact; no pronator drift; light touch sensation intact, at time he has difficulty pronouncing words. - Assessment and Plan (1) TIA (transient ischemic attack) Current Visit: Yes Status: Resolved Assessment and Plan: right sided facial droop, slurred speech resolved CT head without contrast: No acute abnormality CTA head: Unremarkable CTA neck: Left greater than right carotid artery calcifications; no focal signif icant narrowing of the internal carotids bilaterally; no focal significant narrowing of vertebral arteries bilaterall A1c6.3, TSH 1.7 Lipid panel noted- on statins Continue aspirin 325 MRI - no acute abnormalities Neurology recommendations appreciated PT/OT - recs appreciated MRI: No acute intracranial abnormality. Mild chronic microangiopathic ischemic changes of cerebral white matter. TTE: Impressions: LVEF 60%. Normal LV chamber size, wall thickness and function. Mild left ventricular diastolic dysfunction. Normal right ventricular structure and function. No evidence of pulmonary hypertension. No significant valvular dysfunction. (2) Confusion Current Visit: Yes Status: Chronic Assessment and Plan: Patient with headaches and transient episodes of confusion sometimes lasting for several hours. No photophobia, phonophobia, or history of migraine headaches. EEG pending to rule out seizure activity. Continue Tylenol as needed. neurology on board on gabapentin 800 mg QID - will consider decreasing dosage (3) Atypical chest pain Current Visit: Yes Status: Acute Assessment and Plan: Troponins negative 3, chest pain currently resolved As per documentation EKG: Normal sinus rhythm, HR = 61, QRS = 92, QTC = 449, normal axis, normal intervals, no acute ST changes, largely unchanged from previous EKG Echocardiogram LVEF 60%., Normal LV chamber size, wall thickness and function., Mild left ventricular diastolic dysfunction. For stress test 01/29- No ischemia or infarct on perfusion study. continue ASA, statin, ACEI BB discontinued as he has asymptomatic bradycardia at times. NTG PRN for chest pain (4) Hypertension Current Visit: Yes Status: Chronic Assessment and Plan: on amlodipine, ACEI- will titrate to control BP. (5) DVT prophylaxis Current Visit: Yes Status: Acute Assessment and Plan: heparin sc - Time Spent with Patient Total time spent is greater than 50% in coordination of care (as documented) at patient's floor/unit and/or counseling patient: Internal Medicine: Result - Labs CBC & Chem 7: 01/28/18 03:08 01/28/18 03:08 - ABG Interpretation ABG results: PT/INR, D-dimer PT 11.8 Seconds (9.4-12.1) 01/27/18 15:30 - Impressions Impressions Brain MRI 01/29/18 22:37 IMPRESSION: No acute intracranial abnormality. Mild chronic microangiopathic ischemic changes of cerebral white matter. D/ / Smith Lin / Smith Lin Interpreting Provider: Smith Lin Consult Discharge Plan - Plan Referrals: NONE,PCP [Primary Care Provider] - (4) Hypertension Qualifiers: Hypertension type: essential hypertension Qualified Code(s): I10 - Essential (primary) hypertension
--- NOTE | 2018-01-30 16:13 | EEG/EMG/Oth Biometrics Report ---
EEG Procedure Report Date of procedure: 01/30/18 EEG Procedure: Routine EEG Procedure Note: This is a report of a 21 channel bipolar and referential montage EEG. The posterior dominant rhythm consists of mixed low voltage beta as well as alpha frequencies. This rhythm is not reactive to eye opening. Hyperventilation is not performed in recording. Periods of drowsiness are identified as reference by dropout of posterior dominant rhythm and emergence of vertex activity K complexes. Subject and progresses onto stage II sleep as reference by sleep spindles. Photic stimulations performed and does not produce a driving response. The EKG rhythm strip reveals normal sinus rhythm at 60 bpm. Impressions: This EEG recording is within normal limits. There is no evidence of epileptiform activity identified during the study. Please correlate clinically.
[2018-01-31] MEDS: *HR* Heparin 5,000 UNIT/ML VIAL SQ SCH (05:30)
[2018-01-31 06:26] VITALS: BP 123/62
[2018-01-31] MEDS: amLODIPine 5 MG TABLET PO SCH (08:56)
[2018-01-31] MEDS: Aspirin Enteric Coated 325 MG Tablet PO SCH (08:56)
[2018-01-31] MEDS: Lisinopril 20 MG TABLET PO SCH (08:56)
[2018-01-31] MEDS: Gabapentin 400 MG CAPSULE PO SCH (08:56)
--- NOTE | 2018-01-31 10:14 | Discharge Summary ---
- NOTES TO OUTPATIENT PROVIDER Notes to Outpatient Provider: follow up A1c and consider starting him on diabetic medications, A1c was 6.3. follow lipid panela dn adjust statins.he was counsled on diet excerise. follow up [facility] cardiology for HOlter monitoring. follow with neurology. Orders not resulted at time of discharge: Pending orders 01/27/18 15:28 ECG 12 lead ECG [ECG] Stat 01/28/18 09:44 NM danny perf SPECT multi [NM] Routine Date of Encounter: 01/31/18 Time of Encounter: 10:10 - Discharge Diagnosis (1) TIA (transient ischemic attack) Priority: Primary Status: Resolved (2) Confusion Priority: Secondary Status: Chronic (3) Atypical chest pain Priority: Secondary Status: Acute (4) Hypertension Priority: Secondary Status: Chronic Qualifiers: Hypertension type: essential hypertension Qualified Code(s): I10 - Essential (primary) hypertension (5) DVT prophylaxis Priority: Secondary Status: Acute Hospital course: " Mr. Varner is a 67 year old male with history significant for hypertension wh o presents to the ED with chest pain. Patient states that earlier this afternoon he began feeling generalized malaise, discomfort, lightheadedness/dizziness. He notes that he has had this feeling in the past, and usually when he sits down for a minute or two, the feeling usually passes. However, patient continued to feel unease, and shortly thereafter developed sudden onset headache, blurred vision, and then started feeling chest pain in the center of his chest. Chest pain was pressure-like, heavy sensation. Associated with dyspnea, fatigue, lower extremity weakness, posterior neck pain. Heaviness lasted for a few minutes and then turned to sharp pain in the center of his chest, and then to a dull achy sensation. At this point, patient denied fevers/chills, palpitations, nausea, vomiting, arm pain or neck pain, syncopal episode. Patient noted that he has had similar symptoms of chest pain, weakness in the past. Denies history of stroke, TIA, CA, or any other medical history, aside from hypertension. Stated that he had eaten this morning, and drank "multiple gatorades" and so was unlikely he was dehydrated or had low blood sugar. However, he suggested that he go to the ER for evaluation." EKG: Normal sinus rhythm, HR = 61, QRS = 92, QTC = 449, normal axis, normal intervals, no acute ST changes, largely unchanged from previous EKG CT head without contrast: No acute abnormality CTA head: Unremarkable CTA neck: Left greater than right carotid artery calcifications; no focal significant narrowing of the internal carotids bilaterally; no focal significant narrowing of vertebral arteries bilaterally he was admitted for further evaluation of above. He was started on aspirin and Lipitor, TSH was within normal limit, A1c was 6.3. Neurology was consulted and recommended EEG for intermittent confusions, EEG did not show any seizure-like activities and he was cleared for discharge with aspirin and Lipitor along lisinopril for blood pressure control. Troponin was trended for chest pain which was negative 3, stress test was performed which was negative for any ischemia, echocardiogram with EF of 60%. His beta blockers were discontinued as he had sinus bradycardia which was asymptomatic throughout admission lowest heart rate was in the 40s. As per chart review he had Holter monitor placed in 2017 with the lowest heart rate being in the 30s and no pauses were detected. With discontinuation of his beta enma heart rate improved to 60s to 70s. at bedside along with patient report that he has had long history of bradycardia and that his heart rate is normally around 60s. He had followed up with cardiology as outpatient and no recommendations were given for his heart rate. He would like to follow-up with cardiology as outpatient. Holter monitor was prescribed and for him to follow- up with cardiology as outpatient. He was counseled extensively on diet and nutrition as his A1c was 6.3. He is to follow-up with his primary care physician and have his A1c monitored, starting diabetic medication as per PCP discretion. He is to have his lipid panel repeated as outpatient as he was started on statins. Discussed therapy and rehabilitation were consulted and recommended for patient to be discharged home. Discharge discussed with: patient, family, nurse, social work, case management, enrollment consultant - Time Spent with Patient Total time spent providing and/or coordinating discharge services: Greater than 30 minutes (40) - Discharge Medications Prescriptions: Amlodipine Besylate 10 mg PO DAILY #30 tablet Aspirin Enteric Coated [Aspirin EC] 325 mg PO DAILY #30 tablet. Atorvastatin [Lipitor] 40 mg PO HS #30 tablet Lisinopril [Zestril] 20 mg PO DAILY #30 tablet Home Medications: Famotidine [Pepcid] 20 mg PO BID PRN 06/09/18 [History] Gabapentin [Neurontin] 800 mg PO QID 07/29/17 [History] Nitroglycerin [Nitrostat] 0.4 mg SL DAILY PRN 07/29/17 [History] Acetaminophen [Extra Strength Non-Aspirin] 1,000 mg PO DAILY PRN 08/03/17 [History] Amlodipine Besylate 10 mg PO DAILY #30 tablet 01/31/18 [Rx] Aspirin Enteric Coated [Aspirin EC] 325 mg PO DAILY #30 tablet. 01/31/18 [Rx] Atorvastatin [Lipitor] 40 mg PO HS #30 tablet 01/31/18 [Rx] Lisinopril [Zestril] 20 mg PO DAILY #30 tablet 01/31/18 [Rx] Allergies/Adverse Reactions: Allergy/AdvReac Type Severity Reaction Status Date / Time No Known Allergies Allergy Verified 01/27/18 17:04 Date of admission: 01/27/18 19:48 Primary care physician: PCP NONE Consults: 01/29/18 07:54 Consult to Neurology [CONS] Routine Consulting Provider: Neurology [facility] Reason for Consult: TIA Call Completed: No 01/29/18 10:29 Consult to Physical Therapy [CONS] Routine Comment: Evaluate, develop and implement POC Reason for Consult: dispostion Does patient have active BEDREST order?: No Is patient medically & hemodynamically stable?: Yes Patient assessed for mobility or mobilized this visit?: Yes OT [Consult to Occupational Therapy] [CONS] Routine Comment: Evaluate, develop and implement POC Reason for Consult: disposition Does patient have active BEDREST order?: No Is patient medically & hemodynamically stable?: Yes Patient assessed for mobility or mobilized this visit?: Yes 01/30/18 10:01 Consult to Interpret Exam [CONS] Routine Consulting Provider: Noé العلي Consult to Interpret Exam: Interpret EEG - Constitutional Vitals: Temp Pulse Resp BP Pulse Ox 98.1 F 49 15 123/62 94 01/31/18 06:25 01/31/18 06:25 01/31/18 06:25 01/31/18 06:25 01/31/18 06:25 General appearance: Present: A&O X 3, no acute distress Exam: GEN: AOx3; NAD; Resting comfortably in bed HEENT: Atraumatic, Normocephalic; EOMI; PERRLA; mucous membranes moist; no scleral icterus CARDIO: RRR, no murmurs, rubs, gallops RESP: CTAB, no wheezes, rales, rhonchi ABD: Soft, distended abdomen, non-tender, bowel sounds present; no rebound or guarding EXT: No lower extremity edema; non-tender to palpation NEURO: CN 2-12 grossly intact; 5/5 strength upper and lower extremities bilaterally; cerebellar function intact; no pronator drift; light touch sensation intact, at time he has difficulty pronouncing words. - Patient Status Disposition: Home, Self-Care Condition: Fair Functional capacity at discharge: independent ambulation Overall status at discharge: patient is progressing back to baseline - Discharge Instructions Follow Up With: NONE,PCP [Primary Care Provider] - Forms: ED Satisfaction Letter - Diet and Activity Activity: resume usual activities as tolerated Diet: diabetic diet, low salt diet
== END 2018-01-31 11:51 | disposition home or self-care (01) ==
LOC: EMEROOARM 15:17 → 2NENU 15:17 → SUATTDRO 19:48 → 2NENU 21:08
PROVIDERS: ADMIT Internal Medicine; ATTEND Hospitalist